=== PATIENT | female | born 1990 | race Caucasian/White ===

== ENCOUNTER 2021-06-18 07:44 | Emergency (ER) | payer BC | END 2021-06-18 10:41 | disposition home or self-care (01) | LOC: ER1 07:44 | DX: S80.211A Abrasion, right knee, initial encounter (principal); Z23 Encounter for immunization; F41.9 Anxiety disorder, unspecified; J45.909 Unspecified asthma, uncomplicated; G43.909 Migraine, unspecified, not intractable, without status migrainosus; M25.461 Effusion, right knee; W00.0XXA Fall on same level due to ice and snow, initial encounter | CPT/HCPCS: 73564; 90715; 99283 ==

== ENCOUNTER → 2021-06-20 | Outpatient (CLI) | payer BC | LOC: KOH-I 08:09 | DX: S83.511A Sprain of anterior cruciate ligament of right knee, initial encounter (principal); M25.461 Effusion, right knee | CPT/HCPCS: 73721 ==